=== PATIENT | female | born 1935 | race Caucasian/White ===

== ENCOUNTER → 2019-10-03 | Outpatient (CLI) | payer OTHER | LOC: HYPER 11:54 | DX: I87.311 Chronic venous hypertension (idiopathic) with ulcer of right lower extremity (principal); L97.312 Non-pressure chronic ulcer of right ankle with fat layer exposed; I73.9 Peripheral vascular disease, unspecified; B35.1 Tinea unguium; I10 Essential (primary) hypertension; E03.9 Hypothyroidism, unspecified; I48.91 Unspecified atrial fibrillation; I48.0 Paroxysmal atrial fibrillation; M81.0 Age-related osteoporosis without current pathological fracture; M79.674 Pain in right toe(s); M20.5X1 Other deformities of toe(s) (acquired), right foot; M19.90 Unspecified osteoarthritis, unspecified site; R26.89 Other abnormalities of gait and mobility; R60.0 Localized edema; Z95.0 Presence of cardiac pacemaker; Z79.01 Long term (current) use of anticoagulants; Z91.81 History of falling; Z93.3 Colostomy status ==

== ENCOUNTER → 2019-10-23 | Outpatient (CLI) | payer OTHER | LOC: HYPER 10:20 | DX: I87.311 Chronic venous hypertension (idiopathic) with ulcer of right lower extremity (principal); L97.312 Non-pressure chronic ulcer of right ankle with fat layer exposed; I87.2 Venous insufficiency (chronic) (peripheral); B35.1 Tinea unguium; M20.5X1 Other deformities of toe(s) (acquired), right foot; I48.0 Paroxysmal atrial fibrillation; M81.0 Age-related osteoporosis without current pathological fracture; E03.9 Hypothyroidism, unspecified; M19.90 Unspecified osteoarthritis, unspecified site; Z91.81 History of falling; Z79.01 Long term (current) use of anticoagulants; Z93.3 Colostomy status; Z90.49 Acquired absence of other specified parts of digestive tract ==